=== PATIENT | male | born 1940 | race Caucasian/White ===

== ENCOUNTER 2017-10-10 12:27 | Observation (INO) | payer MEDICARE ==
[2017-10-10] MEDS ORDERED: Meclizine HCl 25 MG TAB ONE (12:52)
[2017-10-10 18:07] VITALS: BMI 25.2
[2017-10-10] MEDS ORDERED: hydrALAZINE 20 MG/ML VIAL SLOW IVP PRN (18:10)
[2017-10-10] MEDS ORDERED: Acetaminophen 325 MG TAB PO PRN (18:10)
[2017-10-10] MEDS ORDERED: Ondansetron HCl/PF 4 MG/2 ML Vial IVP PRN (18:10)
[2017-10-10] MEDS: Famotidine/PF 20 mg/2ml Vial SLOW IVP SCH (20:25)
[2017-10-10] MEDS ORDERED: Atorvastatin Calcium 40 MG TAB PO SCH (21:00)
[2017-10-11] MEDS: Meclizine HCl 25 MG TAB PO PRN ×2 (00:25→08:20)
[2017-10-11 06:07] LABS: Anion Gap 11 mmol/L (10-20); BUN (Urea Nitrogen) 22 mg/dL (8.4-25.7); Calc. Creatinine Clearance 67 mL/min (70-130); Calcium 8.6 mg/dL (7.8-10.44); Carbon Dioxide 23 mmol/L (23-31); Cardiac Risk 3.4 (Less than 4.5); Chloride 110 mmol/L (98-107); Cholesterol 116 mg/dl (< 200 Desired); Estimated GFR-MDRD 84; Glucose 80 mg/dL (83-110); HDL Cholesterol 34 mg/dL (>60 Neg Risk); LDL Cholesterol, Calculated 70 mg/dL; Potassium 3.3 mmol/L (3.5-5.1); Sodium 141 mmol/L (136-145); Triglycerides 60 mg/dL (Less than 150)
--- NOTE | 2017-10-11 06:56 | HP-2 ---
ADMITTING RESIDENT: Santiago Hendricks M.D. ADMITTING ATTENDING: Rakan Gillis M.D. PRIMARY CARE PHYSICIAN: René burciaga. The patient currently does not have a PCP. CODE STATUS: DO NOT RESUSCITATE. CHIEF COMPLAINT: Dizziness. HISTORY OF PRESENT ILLNESS: A 77-year-old male with past medical history of hypertension, previous TIAs and glaucoma, who presented with persistent vertigo for the last 10 hours and had no significant nausea or vomiting, which started shortly after he woke up around 5:00 a.m., he stood up and started to feel nauseous. Tis persisted, it was not like previous episodes of nausea that he has had that would resolve shortly, so at 9 a.m., he sought care in the emergency department; they gave aspirin, some fluids and it did not improve. Based on their exam, there are concerned for possible posterior CVA, so they transferred the patient to our center. He did not have any chest pain or shortness of breath, did not have any weakness in his legs or arms, and did not have any slurred speech or sensory deficits. He denied any vision changes or hearing changes. No buzzing in his ears, no ear pain. PAST MEDICAL HISTORY: 1. Hypertension. 2. Glaucoma. 3. Past TIA/strokes 5 to 6 years ago. 4. Obstructive sleep apnea. PAST SURGICAL HISTORY: Appendectomy. ALLERGIES: None. MEDICATIONS: 1. Atenolol. 2. Simvastatin. 3. Clopidogrel. 4. Multivitamin. 5. Aspirin 81 mg. FAMILY HISTORY: Heart disease. SOCIAL HISTORY: The patient smoked lightly for a couple years when he was in high school, but has had no cigarettes for the last 55 years, not enough smoking to calculate pack years. Alcohol, the patient has 1-2 drinks a month. Drugs: None. REVIEW OF SYSTEMS: Twelve point review of systems was negative except for what is detailed above. PHYSICAL EXAMINATION: VITAL SIGNS: Blood pressure 120/80, pulse 72, respiratory 14, T-max 97.8, pulse ox 94% on room air, current weight 60 kilograms. GENERAL: The patient is alert and oriented x3, in no acute distress. Well- developed and appropriately interactive. HEENT: Eyes: PERRLA, EOMI. Conjunctivae within normal limits, but horizontal nystagmus seen in leftward and rightward gaze. ENT: Showed normal nasal mucosa and oropharynx. NECK: Supple without lymphadenopathy, thyromegaly or bruits. CARDIOVASCULAR: Regular rate and rhythm without murmurs or gallops. Radial pulses 2+, pedal pulses 2+. RESPIRATORY: Normal effort without retractions. Clear to auscultation bilaterally. SKIN: Warm and dry without cyanosis or lesions. ABDOMEN: Soft, nontender to palpation. Bowel sounds x4. EXTREMITIES: No clubbing, cyanosis or edema. MUSCULOSKELETAL: Structure within normal limits. Tone within normal limits. Muscle strength 5/5. Full range of motion. NEUROLOGIC: The patient showed no focal deficits, had normal cranial nerve exam except for horizontal nystagmus seen with rightward gaze and leftward gaze. The patient had a normal response to the head thrust test and had a negative responsive to cover-uncover test or Skew test. The patient had normal strength and sensation in upper and lower extremities. No slurring of speech. Deep tendon reflexes normal. PSYCHIATRIC: The patient is appropriate. LABORATORY DATA: White blood cell count 7.1, hemoglobin 13.0, hematocrit 38.5, and platelets 128. Sodium 141, potassium 3.7, chloride 109, bicarbonate 23, BUN 24, creatinine 1.1, glucose 119. Troponin 0.010. BNP 270. EKG was normal sinus rhythm. Chest x-ray no acute disease. IMAGING: CT brain showed no acute disease, no evidence of hemorrhagic stroke. ASSESSMENT AND PLAN: 1. Vertigo: This 77-year-old male with history of transient ischemic attacks, presents with vertigo concerning for posterior cardiovascular accident. The patient is not having significant nausea or vomiting, the symptoms are persistent, did not vary with position; hence, exam was concerning with a normal head thrust test and horizontal nystagmus on both sides to both directions. Exam did not include concerning features such as vertical nystagmus or positive Skew test. We will admit for workup. We will start MRI and MRA, q.4 h. neuro checks, continue the patient's Plavix and aspirin, and we will consult Neurology if MRI and MRA is positive or symptoms worsen in any way. While I do no think this is benign positional vertigo, we will give the patient a dose of meclizine to see if that gives any benefit. 2. Permissive hypertension. We will hold patient's atenolol and allow permissive hypertension until 5 a.m. tomorrow morning. 3. Deep venous thrombosis prophylaxis with Lovenox. History and physical exam as well as management discussed with Dr. Rakan Gillis, who is in agreement. MTDD
[2017-10-11 06:57] LABS: #Eosinphils 0.1 thou/uL (0.0-0.7); #Lymphocytes 1.9 thou/uL (1.20-3.40); #Monocytes 0.6 thou/uL (0.11-0.59); #Neutrophils 3.1 thou/uL (1.40-6.50); %Basophils 0.3 % (0.0-1.0); %Eosinophils 1.6 % (0.0-10.0); %Lymphocytes 32.9 % (21.0-51.0); %Monocytes 10.1 % (0.0-10.0); %Neutrophils 55.1 % (42.0-75.0); Band 2 % (5-11); Hemoglobin 12.1 g/dL (14.0-18.0); Lymphocytes 28 % (21-51); MDiff Complete? YES; Macrocytosis MODERATE=16-30 cells (100X) (0-5/hpf); Mean Corpuscular HGB CONC 33.2 g/dL (32.0-36.0); Mean Corpuscular Hemoglobin 34.8 pg (27.0-31.0); Mean Platelet Volume 9.9 fL (7.4-10.4); Monocytes 8 % (0-10); Neutrophil 62 % (42-75); PLT Morphology Comment Appears Adequate; Platelet Count 142 thou/uL (130-400); RBC Distribution Width 11.3 % (11.5-14.5); Red Blood Cell (RBC) Count 3.49 mill/uL (4.70-6.10); White Blood Cell (WBC) Count 5.6 thou/uL (4.8-10.8)
[2017-10-11] MEDS: Famotidine/PF 20 mg/2ml Vial SLOW IVP SCH (08:20)
--- NOTE | 2017-10-11 08:29 | PDOC.FM ---
- Subjective Subjective: Patient states he had a good night. He states the dizziness has basically totally resolved. He states he was still feeling somewhat lightheaded when he got up to go to the bathroom, but other mead feels basically back to normal. He denies chest pain, sob, vision changes, sensory changes, or falls. He had no other concerns this morning. - Objective Vital Signs & Weight: Vital Signs (12 hours) Temp Pulse Resp BP Pulse Ox 10/11/17 04:06 99.0 F 59 L 16 110/57 L 92 L 10/10/17 23:53 98.8 F 60 16 107/57 L 94 L Weight Weight 69.808 kg I&O: 10/10/17 10/11/17 10/12/17 06:59 06:59 06:59 Intake Total 380 Balance 380 Result Diagrams: 10/11/17 04:27 10/11/17 04:27 Phys Exam - Physical Examination HEENT: PERRLA, moist MMs Neck: no nodes Respiratory: no wheezing, clear to auscultation bilateral Cardiovascular: RRR, no significant murmur Gastrointestinal: soft, non-tender, no distention, positive bowel sounds Musculoskeletal: no edema, pulses present Neurological: non-focal, normal sensation, moves all 4 limbs normal head thrust, Skew test, and negative rhomberg Lymphatic: no nodes Psychiatric: normal affect, A&O x 3 Skin: no rash Dx/Plan (1) Vertigo Code(s): R42 - DIZZINESS AND GIDDINESS Status: Acute (2) HTN (hypertension) Code(s): I10 - ESSENTIAL (PRIMARY) HYPERTENSION Status: Acute (3) Hx of transient ischemic attack (TIA) Status: Acute - Plan Plan: 1. Vertigo - resolved - Rule out CVA with MRA/MRI - Meclizine as needed 2. HTN - Allowing for permissive HTN 3. Hx of TIA - Statin therapy - Plavix and Aspirin Disposition: Stable, will await MRA/MRI results.
[2017-10-11] MEDS ORDERED: Potassium Chloride 20 MEQ TAB PO SCH (08:30)
[2017-10-11] MEDS ORDERED: Enoxaparin Sodium 40 MG/0.4 ML SYRINGE SC SCH (09:00)
[2017-10-11] MEDS ORDERED: Aspirin 81 mg Enteric Coated Tablet PO SCH (09:00)
[2017-10-11] MEDS ORDERED: Clopidogrel Bisulfate 75 MG TAB PO SCH (09:00)
--- NOTE | 2017-10-11 10:23 | MRI ---
BRAIN MRI NONCONTRAST: Clinical history: Stroke. Comparison: Head CT previous day. FINDINGS: Ventricular system is age appropriate in size. There is no acute territorial infarction, mass effect, or midline shift. There is mild global atrophy. There is mild chronic microvascular ischemic disease . No intracranial hemorrhagic susceptibility. Imaged skull based flow voids are grossly patent. Parti ally imaged retention cyst formation of the maxillary sinus as well as opacification of the right camille or sphenoid air cell. There is mucosal thickening throughout the ethmoid air cells bilaterally. IMPRESSION: 1. No acute territorial infarction, mass effect or midline shift. 2. Mild chronic microvascular ischemic disease. 3. Scattered paranasal sinus mucosal inflammatory process most notable at the right major sphenoid ai r cell. POS: TPC
[2017-10-11 12:03] VITALS: BP 132/71; TEMP 97.5
--- NOTE | 2017-10-11 12:13 | MRI ---
MR ANGIOGRAM NECK WITH AND WITHOUT GADOLINIUM CONTRAST WITH 3D POST PROCESSING: FINDINGS: There is normal branching of the great vessels from the aortic arch. Some motion artifact is present on the [id number] images. Contrast enhanced images best demonstrate good flow through the carotid and vertebral systems. Good c aliber of each internal carotid artery is demonstrated. No significant stenosis. IMPRESSION: No evidence of significant carotid stenosis. POS: RADHA
--- NOTE | 2017-10-11 14:27 | HP ---
I have reviewed the history and physical of Dr. Santiago Hendricks and discussed the case with him. I agree with his assessment and plan. HISTORY OF PRESENT ILLNESS: Briefly, Mr. Antony is a pleasant 77-year-old white male patient with a prior history of hypertension and TIA. He awoke this morning around 5:00 a.m. feeling profoundly pattie tiginous and nauseated. He often has benign positional vertigo, but this has persisted and is much w orse than his usual cases of vertigo. He presented to the emergency room and has been admitted for f urther evaluation and workup. He denies any headache, blurred vision or any other focal deficits. PHYSICAL EXAMINATION: VITAL SIGNS: His blood pressure was 120/80, his pulse rate is 70 and regular, respirations are 13 an d he is afebrile. His room air pulse ox is 94%. GENERAL: Although slightly hard of hearing, he is awake, alert, in no distress. He has no obvious m ovement disorders. ENT: No erythema or exudate. Tongue and uvula in midline. NECK: Supple. CARDIAC: Heart rhythm regular, no gallop or murmur noted. LUNGS: Breath sounds are diminished, but clear without rales or wheezes. No respiratory distress. EXTREMITIES: No cyanosis or edema. NEUROLOGIC: As stated, he moves all extremities without difficulty. No focal weaknesses. He does h ave a slight horizontal nystagmus with right upper gaze. LABORATORY DATA: CBC: White count is 5600, hemoglobin 12.1, hematocrit 36.6 with an MCV of 105. Ch emistries: Sodium 141, potassium 3.3, chloride 110, bicarbonate 23, BUN 22, creatinine 0.88, glucose is 80. ASSESSMENT: Possible posterior circulation transient ischemic attack. PLAN: The patient will be admitted. We will do a TIA type workup and proceed based on initial findi ngs.
--- NOTE | 2017-10-11 15:27 | ADD-PRG ---
DATE: 10/11/2017 This is an addendum to the note of Dr. Janes Ngo. Mr. Antony looks and feels much better this morning. He states the vertigo was completely dissipated . His head and neck MRI show no signs of stroke or significant vascular disease. We can likely disc harge him shortly.
--- NOTE | 2017-10-12 09:06 | DIS-2 ---
DATE OF ADMISSION: 10/10/2017 DATE OF DISCHARGE: 10/11/2017 RESIDENT: Dr. Janes Ngo ADMITTING ATTENDING: Dr. Rakan Gillis DISCHARGE ATTENDING: Dr. Rakan Gillis CONSULTATIONS: None. PROCEDURES: The patient underwent a brain MRI on 10/11/2017 that showed no acute territorial infarction, mass effect or midline shift and mild chronic microvascular ischemic changes, scattered paranasal sinus mucosal inflammatory process, most notably of the right major sphenoid air cell. The patient also underwent a neck MRA on 10/11/2017 that showed no evidence of significant carotid stenosis. PRIMARY DIAGNOSIS: 1. Vertigo. 2. Hypertension. 3. History of transient ischemic attack. DISCHARGE MEDICATIONS: 1. Latanoprost eyedrops. 2. Aspirin 81 mg p.o. daily. 3. Simvastatin 20 mg p.o. at bedtime. 4. Centrum Silver tablet 1 tab p.o. daily. 5. Clopidogrel 75 mg p.o. daily. 6. Atenolol 25 mg p.o. daily. 7. Meclizine 25 mg p.o. q.8h. p.r.n. DISCONTINUED MEDICATIONS: None. HOSPITAL COURSE: This is 77 year male with past medical history of hypertension , previous TIAs, glaucoma, who presented with persistent vertigo for the last 10 hours and had no significant nausea or vomiting which started shortly after he woke up around 5:00 a.m. He stood up and started to feel nauseous. This persisted and it was not like previous episodes of nausea that he had that would resolve shortly, so at 9:00 a.m. he sought care in the emergency department. They gave him aspirin, some fluids and he did not improve. Based on their exam they were concerned for some possible posterior CVA, so they transferred the patient to our center. He did not have any chest pain or shortness of breath. He did not have any weakness in his legs and arms. He did not have any slurred speech or sensory deficits. He denied any vision changes or hearing changes. No buzzing in his ears. No ear pain. During this hospitalization, the patient had an extensive neurological examination that showed negative thrust test, a negative horizontal nystagmus test and a negative skew test. The patient had cranial nerves II-XII that were grossly intact throughout his hospitalization and no further neurologic deficits. The patient was given meclizine during his hospitalization with improvement of his symptoms and no longer having the feelings of the dizziness or the nausea. The patient had some notable lab values of potassium of 3.3, hemoglobin of 12.1, MCV 105.0, and monocytosis 10.1 and a cholesterol level of 116. The patient was counseled on having the monocytosis and macrocytosis worked up for possible myeloproliferative disorder as an outpatient. The patient was afebrile during his entire hospitalization and had normotensive blood pressures at that time as well. Otherwise, the patient had the MRA and MRI results that were negative and at that time it was planned to have this patient discharged home with follow up with his PCP as an outpatient. He underwent no further complications and was discharged in appropriate good condition. DISPOSITION: Stable. DISCHARGE INSTRUCTIONS: 1. Location: He will be discharged home in the care of himself and his . 2. Diet will be a heart healthy diet. 3. Activity will be as tolerated. 4. Followup: Follow up will be with [facility] in 1 week as he just moved to [place] from [place] and has not established care. I wish this fellow the best of luck and hope he has no further complications from his vertigo. DANNA
== END 2017-10-11 15:12 | disposition home or self-care (01) ==
LOC: ERS 12:27 → 2SE 14:22
PROVIDERS: ADMIT Family Medicine; ATTEND Family Medicine
DX: R42 Dizziness and giddiness (principal); I10 Essential (primary) hypertension; G47.33 Obstructive sleep apnea (adult) (pediatric); E78.5 Hyperlipidemia, unspecified; E78.00 Pure hypercholesterolemia, unspecified; Z86.73 Personal history of transient ischemic attack (TIA), and cerebral infarction without residual deficits; Z87.891 Personal history of nicotine dependence; Z79.82 Long term (current) use of aspirin; Z79.02 Long term (current) use of antithrombotics/antiplatelets; Z79.899 Other long term (current) drug therapy; Z90.49 Acquired absence of other specified parts of digestive tract; Z98.890 Other specified postprocedural states; Z66 Do not resuscitate
CPT/HCPCS: 70549; 70551; 80048; 80061; 85025; 96372; 96374; 99285; G0378; 36415; A4216; J1650; S0028